=== PATIENT | male | born 1980 | race Caucasian/White ===

== ENCOUNTER 2020-05-20 21:59 | Emergency (ER) | payer OTHER ==
[~2020-05-20] VITALS: Ht 182.9 cm; Wt 88.5 kg
[2020-05-20 22:14] VITALS: BP_SYST 141
[2020-05-21] MEDS ORDERED: KETOROLAC TROMETHAMINE 30 MG VIAL ONE (01:11)
[2020-05-21] MEDS ORDERED: KETOROLAC TROMETHAMINE 30 MG VIAL IM ONE (01:15)
[2020-05-21] MEDS ORDERED: METH750T3 GT (01:20)
[2020-05-21 01:42] VITALS: BP_SYST 138
== END 2020-05-21 01:42 | disposition home or self-care (01) ==
LOC: SED 21:59
DX: S33.5XXA Sprain of ligaments of lumbar spine, initial encounter (principal); S13.9XXA Sprain of joints and ligaments of unspecified parts of neck, initial encounter; R07.89 Other chest pain; V49.9XXA Car occupant (driver) (passenger) injured in unspecified traffic accident, initial encounter; Y93.89 Activity, other specified; Y92.89 Other specified places as the place of occurrence of the external cause; Y99.8 Other external cause status
CPT/HCPCS: 71045; 72128; 72131; 76376; 96372; 99285; J1885